=== PATIENT | female | born 1975 | race Caucasian/White ===

== ENCOUNTER → 2020-03-18 | Outpatient (CLI) | payer OTHER ==
[~2020-03-18] MED LIST: ACETAMINOPHEN650 MG PO; AUGMENTIN 875-1 EACH PO; CELEBREX200 MG PO; CELECOXIB200 MG PO; CIPRO500 MG PO; FLAGYL500 MG PO; GABAPENTIN600 MG PO; HYDROCODON-ACE1 EAC4 PO; IBU800 MG PO; IBUPROFEN600 MG PO; LACTINEX TABLET1 EA PO; LEVAQUIN500 MG PO; LORTAB 7.5-3251 EACH PO; METHOCARBAMOL750 MG PO; NEURONTIN 300300 MG PO; NORCO 5-325 TA1 EACH PO; NORCO 7.5-3251 EACH PO; OMEPRAZOLE20 MG PO; PREDNISONE 50 M50 MG PO; PRILOSEC OTC20 MG PO; QVAR REDIHALER INH; ROBAXIN-750750 MG PO; TYLENOL 325MG325 MG PO; VENTOLIN HFA 66.7 GM INH; XARELTO15 PACK PO; ZANAFLEX 4 MG TA4 MG PO; ZOFRAN4 MG PO
== END ==
LOC: HEART 5 15:10
DX: J96.00 Acute respiratory failure, unspecified whether with hypoxia or hypercapnia (principal)
CPT/HCPCS: 94010; 94729

== ENCOUNTER → 2020-03-25 | Outpatient (CLI) | payer OTHER | LOC: RAD 12:36 | DX: Z09 Encounter for follow-up examination after completed treatment for conditions other than malignant neoplasm (principal); Z86.16 Personal history of COVID-19 | CPT/HCPCS: 71046 ==

== ENCOUNTER 2020-04-15 10:19 | Emergency (ER) | payer OTHER ==
[~2020-04-15 10:19] MED LIST changes: -XARELTO15 PACK PO
[2020-04-15 11:07] LABS: HEMOGLOBIN 13.2 gm/dl (12.3-15.3); RED BLOOD COUNT 4.25 M/UL (4.00-5.10); WHITE BLOOD COUNT 5.6 K/UL (4.5-11.0)
[2020-04-15] MEDS ORDERED: XARELTO15 PACK PO (13:32)
== END 2020-04-15 13:40 | disposition home or self-care (01) ==
LOC: ER1 10:19
PROVIDERS: Family Medicine
DX: I26.99 Other pulmonary embolism without acute cor pulmonale (principal); N19 Unspecified kidney failure; Z86.711 Personal history of pulmonary embolism; Z86.718 Personal history of other venous thrombosis and embolism
CPT/HCPCS: 36415; 80053; 82550; 82553; 83874; 83880; 84484; 85025; 85379; 93005; 99285; Q9967

== ENCOUNTER → 2020-07-12 | Outpatient (CLI) | payer OTHER ==
[~2020-07-12] MED LIST changes: +XARELTO15 PACK PO
[2020-07-12 10:44] LABS: HEMOGLOBIN 13.6 gm/dl (12.3-15.3); RED BLOOD COUNT 4.25 M/UL (4.00-5.10); WHITE BLOOD COUNT 6.3 K/UL (4.5-11.0)
== END ==
LOC: LAB 10:21
PROVIDERS: Emergency Medicine
DX: R53.83 Other fatigue (principal); I27.82 Chronic pulmonary embolism; R60.0 Localized edema; R09.02 Hypoxemia
CPT/HCPCS: 80053; 85025

== ENCOUNTER 2020-07-29 01:32 | Emergency (ER) | payer OTHER ==
[2020-07-29 02:27] LABS: HEMOGLOBIN 13.1 gm/dl (12.3-15.3); RED BLOOD COUNT 4.06 M/UL (4.00-5.10); WHITE BLOOD COUNT 8.2 K/UL (4.5-11.0)
[2020-07-29 02:46] LABS: BUN/CREATININE RATIO 20 (0-10)
[2020-07-29 06:11] LABS: ADENOVIRUS F 40/41 Not Detected (Negative); ASTROVIRUS Not Detected (Negative); CAMPYLOBACTER Not Detected (Negative); CLOSTRIDIUM DIFFICILE TOX A/B Not Detected (Negative); CRYPTOSPORIDIUM Not Detected (Negative); E.COLI 0157 Not Detected (Negative); ENTAMOEBA HISTOLYTICA Not Detected (Negative); ENTEROAGGREGATIVE E.COLI (EAEC Not Detected (Negative); ENTEROPATHOGENIC E.COLI (EPEC) Not Detected (Negative); ENTEROTOXIGENIC E.COLI (ETEC) Not Detected (Negative); GIARDIA LAMBLIA Not Detected (Negative); NOROVIRUS GI/GII Not Detected (Negative); PLESIOMONAS SHIGELLOIDES Not Detected (Negative); ROTOVIRUS A Not Detected (Negative); SALMONELLA Not Detected (Negative); SAPOVIRUS Not Detected (Negative); SHIG/ENTEROINVAS.ECOLI (EIEC) Not Detected (Negative); SHIGA-LIK TOX.PRO.E.COLI (STEC Not Detected (Negative); VIBRIO Not Detected (Negative); VIBRIO CHOLERAE Not Detected (Negative); YERSINIA ENTEROCOLITICA Not Detected (Negative)
== END 2020-07-29 06:00 | disposition home or self-care (01) ==
LOC: ER1 01:32
PROVIDERS: Family Medicine; Physician Assistant
DX: R10.84 Generalized abdominal pain (principal)
CPT/HCPCS: 80053; 81001; 83690; 85025; 87507; 99284; Q9967

== ENCOUNTER → 2020-10-19 | Outpatient (CLI) | payer OTHER | LOC: SLEEP 10:27 | DX: G47.33 Obstructive sleep apnea (adult) (pediatric) (principal); Z86.711 Personal history of pulmonary embolism; Z86.16 Personal history of COVID-19; E66.9 Obesity, unspecified | CPT/HCPCS: 95810 ==

== ENCOUNTER 2020-11-05 23:57 | Emergency (ER) | payer OTHER | END 2020-11-06 03:15 | disposition home or self-care (01) | LOC: ER1 23:57 | DX: S92.511A Displaced fracture of proximal phalanx of right lesser toe(s), initial encounter for closed fracture (principal); Z86.711 Personal history of pulmonary embolism; Z86.718 Personal history of other venous thrombosis and embolism; Z90.710 Acquired absence of both cervix and uterus; Z79.01 Long term (current) use of anticoagulants; W01.0XXA Fall on same level from slipping, tripping and stumbling without subsequent striking against object, initial encounter | CPT/HCPCS: 73630; 99283 ==

== ENCOUNTER → 2020-11-19 | Outpatient (CLI) | payer OTHER ==
[2020-11-19 11:28] LABS: HEMOGLOBIN 12.8 gm/dl (12.3-15.3); RED BLOOD COUNT 4.16 M/UL (4.00-5.10); WHITE BLOOD COUNT 7.5 K/UL (4.5-11.0)
== END ==
LOC: LAB 10:54
PROVIDERS: Emergency Medicine
DX: R06.02 Shortness of breath (principal); I27.82 Chronic pulmonary embolism; M62.81 Muscle weakness (generalized)
CPT/HCPCS: 36415; 80053; 84443; 85025

== ENCOUNTER 2020-12-15 16:57 | Emergency (ER) | payer OTHER ==
[2020-12-15 18:03] LABS: HEMOGLOBIN 12.7 gm/dl (12.3-15.3); RED BLOOD COUNT 3.9 M/UL (4.00-5.10); WHITE BLOOD COUNT 6.9 K/UL (4.5-11.0)
== END 2020-12-15 21:15 | disposition home or self-care (01) ==
LOC: ER1 16:57
PROVIDERS: Physician Assistant
DX: R10.32 Left lower quadrant pain (principal)
CPT/HCPCS: 80053; 81001; 85025; 99284; Q9967

== ENCOUNTER → 2021-03-17 | Outpatient (CLI) | payer OTHER | LOC: LAB 09:20 | PROVIDERS: Emergency Medicine | DX: R60.0 Localized edema (principal); M62.81 Muscle weakness (generalized) | CPT/HCPCS: 36415; 80048 ==

== ENCOUNTER 2021-06-20 09:43 | Emergency (ER) | payer OTHER ==
[~2021-06-20 09:43] MED LIST changes: +AMOX TR-K CLV1 EAC4 PO; +ASPIRIN EC81 MG PO; +CETIRIZINE HCL10 MG PO; +DOCUSATE SODIU100 MG PO; +FAMOTIDINE20 MG PO; +FLAGYL 250 MG250 MG PO; +FLONASE 0.05% N16 GM; +HYDROCODON-ACE1 EAC2 PO; +HYDROXYZINE HCL10 MG PO; +LEVOFLOXACIN500 MG PO; +MODAFINIL100 MG PO; +ONDANSETRON ODT4 MG SL; +PROAIR HFA8.5 GM INH; +SERTRALINE HCL25 MG PO; +ZOFRAN 4 MG TAB4 MG PO
[2021-06-20 10:52] LABS: HEMOGLOBIN 13.1 gm/dl (12.3-15.3); RED BLOOD COUNT 4.08 M/UL (4.00-5.10); WHITE BLOOD COUNT 5.4 K/UL (4.5-11.0)
[2021-06-20 11:14] LABS: BUN/CREATININE RATIO 21 (0-10)
[2021-06-20] MEDS ORDERED: IBUPROFEN600 MG PO (13:24)
== END 2021-06-20 13:50 | disposition home or self-care (01) ==
LOC: ER1 09:43
PROVIDERS: Emergency Medicine
DX: S80.02XA Contusion of left knee, initial encounter (principal); Z86.711 Personal history of pulmonary embolism; Z86.718 Personal history of other venous thrombosis and embolism; X58.XXXA Exposure to other specified factors, initial encounter
CPT/HCPCS: 73564; 73590; 80048; 85025; 85610; 85730; 93971; 99284

== ENCOUNTER 2021-07-17 11:39 | Emergency (ER) | payer OTHER ==
[~2021-07-17 11:39] MED LIST changes: -SERTRALINE HCL25 MG PO; +SERTRALINE HCL50 MG PO
[2021-07-17 12:52] LABS: HEMOGLOBIN 11.3 gm/dl (12.3-15.3); RED BLOOD COUNT 3.56 M/UL (4.00-5.10); WHITE BLOOD COUNT 8.1 K/UL (4.5-11.0)
[2021-07-17 13:17] LABS: BUN/CREATININE RATIO 24 (0-10)
[2021-07-17] MEDS ORDERED: AMOX TR-K CLV1 EAC4 PO (16:03)
== END 2021-07-17 16:21 | disposition home or self-care (01) ==
LOC: ER1 11:39
PROVIDERS: Emergency Medicine
DX: G89.18 Other acute postprocedural pain (principal); R10.9 Unspecified abdominal pain; Z20.822 Contact with and (suspected) exposure to COVID-19
CPT/HCPCS: 80053; 81001; 83605; 83690; 85025; 87040; 96374; 99283; J2543; J7030; Q9967; U0002

== ENCOUNTER 2021-07-18 17:36 | Emergency (ER) | payer OTHER ==
[~2021-07-18] VITALS: Ht 180.3 cm; Wt 165.1 kg
[2021-07-18 22:10] LABS: BUN/CREATININE RATIO 18 (0-10)
[2021-07-18 22:56] LABS: HEMOGLOBIN 10.8 gm/dl (12.3-15.3); RED BLOOD COUNT 3.44 M/UL (4.00-5.10); WHITE BLOOD COUNT 9.8 K/UL (4.5-11.0)
[2021-07-20 08:36] LABS: HEMOGLOBIN 10.1 gm/dl (12.3-15.3); RED BLOOD COUNT 3.23 M/UL (4.00-5.10)
[2021-07-20 09:01] LABS: BUN/CREATININE RATIO 19 (0-10)
[2021-07-20] MEDS ORDERED: AUGMENTIN 500-500 MG PO (09:55)
== END 2021-07-20 21:00 | disposition short-term general hospital (02) ==
LOC: ER1 17:36
PROVIDERS: Emergency Medicine; Family Medicine
DX: T81.49XA Infection following a procedure, other surgical site, initial encounter (principal); L03.311 Cellulitis of abdominal wall; K58.9 Irritable bowel syndrome, unspecified; Z93.3 Colostomy status; Z86.711 Personal history of pulmonary embolism; Z86.718 Personal history of other venous thrombosis and embolism; Z86.16 Personal history of COVID-19; Z79.82 Long term (current) use of aspirin; Z79.899 Other long term (current) drug therapy
CPT/HCPCS: 80053; 81001; 83605; 83690; 83735; 85025; 86140; 87070; 87077; 87186; 87205; 96374; 96375; 96376; 99285; J2270; J2405; J2543; J3370; J7070; Q9967

== ENCOUNTER → 2021-07-29 | Outpatient (CLI) | payer OTHER ==
[~2021-07-29] MED LIST changes: +AUGMENTIN 500-500 MG PO
== END ==
LOC: HEART 5 09:11
DX: R00.2 Palpitations (principal); F41.9 Anxiety disorder, unspecified; R51.9 Headache, unspecified; R41.3 Other amnesia; G47.19 Other hypersomnia; Z00.00 Encounter for general adult medical examination without abnormal findings

== ENCOUNTER → 2021-07-29 | Outpatient (CLI) | payer OTHER | LOC: WCC 10:17 | DX: S31.109A Unspecified open wound of abdominal wall, unspecified quadrant without penetration into peritoneal cavity, initial encounter (principal); I12.9 Hypertensive chronic kidney disease with stage 1 through stage 4 chronic kidney disease, or unspecified chronic kidney disease; N18.30 Chronic kidney disease, stage 3 unspecified; E66.01 Morbid (severe) obesity due to excess calories | CPT/HCPCS: 97606 ==

== ENCOUNTER → 2021-08-10 | Outpatient (CLI) | payer OTHER ==
[2021-08-10 12:37] LABS: HEMOGLOBIN 11.2 gm/dl (12.3-15.3); RED BLOOD COUNT 3.75 M/UL (4.00-5.10); WHITE BLOOD COUNT 6.4 K/UL (4.5-11.0)
[2021-08-10 12:50] LABS: BUN/CREATININE RATIO 15 (0-10)
== END ==
LOC: CT 12:00
PROVIDERS: Colon & Rectal Surgery
DX: Z87.19 Personal history of other diseases of the digestive system (principal); Z86.711 Personal history of pulmonary embolism
CPT/HCPCS: 36415; 80048; 85027; Q9967

== ENCOUNTER 2021-08-29 15:04 | Emergency (ER) | payer OTHER ==
[2021-08-29 15:41] LABS: RED BLOOD COUNT 3.96 M/UL (4.00-5.10); WHITE BLOOD COUNT 6.6 K/UL (4.5-11.0)
[2021-08-29 16:05] LABS: BUN/CREATININE RATIO 16 (0-10)
== END 2021-08-29 20:17 | disposition home or self-care (01) ==
LOC: ER1 15:04
PROVIDERS: Emergency Medicine
DX: R06.00 Dyspnea, unspecified (principal); M25.511 Pain in right shoulder; R10.9 Unspecified abdominal pain; R10.819 Abdominal tenderness, unspecified site; Z86.711 Personal history of pulmonary embolism; Z86.718 Personal history of other venous thrombosis and embolism; Z90.710 Acquired absence of both cervix and uterus; Z20.822 Contact with and (suspected) exposure to COVID-19
CPT/HCPCS: 80053; 82550; 82553; 83605; 83880; 84484; 85025; 87040; 93005; 99285; Q9967; U0002

== ENCOUNTER 2021-11-04 16:50 | Emergency (ER) | payer OTHER ==
[2021-11-04 18:00] LABS: RED BLOOD COUNT 3.95 M/UL (4.00-5.10); WHITE BLOOD COUNT 6.2 K/UL (4.5-11.0)
== END 2021-11-04 20:55 | disposition home or self-care (01) ==
LOC: ER1 16:50
PROVIDERS: Physician Assistant Medical
DX: I47.9 Paroxysmal tachycardia, unspecified (principal)
CPT/HCPCS: 71045; 80053; 82550; 82553; 83880; 84484; 85025; 85379; 85610; 85652; 85730; 86140; 93005; 99285; Q9967

== ENCOUNTER → 2021-11-17 | Outpatient (CLI) | payer OTHER | LOC: HEART 5 13:42 | DX: R06.02 Shortness of breath (principal) | CPT/HCPCS: 94060; 94729 ==

== ENCOUNTER → 2021-12-04 | Outpatient (CLI) | payer OTHER | LOC: CATH 09:49 | DX: I49.8 Other specified cardiac arrhythmias (principal); I95.1 Orthostatic hypotension ==